=== PATIENT | female | born 1960 | race Caucasian/White ===

== ENCOUNTER → 2019-07-16 | Day surgery (SDC) | payer OTHER ==
[~2019-07-16] MED LIST: BUSP5TAB PO; CELE200C PO; CITA20TA6 PO; CLONAZEPAM1 MG PO; DOCU-109 PO; DULO60CA6 PO; HYDR-2680 PO; HYDR-2765 PO; HYDR25TA PO; IV RINGERS,LACTATED 1000ML 1,000 ML IV SCH; LIDOCAINE 2% PF 5 ML VIAL. ONE; LISI-130 PO; OLAN20TA15 PO; OLME1TAB21 PO; OXYC10TA46 PO; PANT40TA77 PO; PROPOFOL 20 ML IV ONE; PROPOFOL 40 ML IV ONE; WARF-78 PO
[2019-07-16 14:45] VITALS: BP 113/68
--- NOTE | 2019-07-17 14:06 | PATHOLOGY ---
[facility] Accession Number: [id number] . 01 Material submitted: . esophagus - DISTAL ESOPHAGUS BIOPSY. Modifiers: distal . 01 Clinical history: . Nausea with vomiting, abdominal pain, [facility] . 02 Diagnosis: Esophageal biopsies, distal esophagus: - Segments of hyperplastic squamous esophageal mucosa consistent with reflux esophagitis. (JPM:moses; 07/17/2019) QMS 07/17/2019 0846 Local . 02 Comment: Sections of the distal esophageal biopsy reveal segments of tangentially oriented, hyperplastic squamous esophageal mucosa showing focal chronic inflammation. There is a rare intraepithelial eosinophil. The findings are consistent with reflux esophagitis. There is no evidence of Stark's change, dysplasia, or malignancy. (JPM:moses; 07/17/2019) . 02 Electronically signed: . Derek Connell MD, Pathologist NPI- [id number] . 01 Gross description: . Received in formalin labeled "Tangela Benjamin, distal esophagus BX," are 2 segments of moyer soft tissue measuring 0.9 x 0.2 x 0.2 cm in aggregate dimensions and ranging from 0.4 to 0.5 cm in maximum dimension. The specimen is submitted entirely in cassette A1. (TSD; 07/16/2019) TOB/TOB 07/16/2019 1754 Local . 02 Pathologist provided ICD-10: K21.0 . 02 CPT . 493808 Specimen Comment: A courtesy copy of this report has been sent to Specimen Comment: [phone], . Specimen Comment: Report sent to / DR SLAUGHTER Performed at: [address], [place], [place] [id number] MD Angel Pink MD Phone: [phone] Performed at: [address] [id number] MD Derek Connell MD Phone: [phone]
== END ==
LOC: SURG 12:04
PROVIDERS: ATTEND Internal Medicine Gastroenterology
DX: R19.4 Change in bowel habit (principal); K57.30 Diverticulosis of large intestine without perforation or abscess without bleeding; K21.0 Gastro-esophageal reflux disease with esophagitis; K44.9 Diaphragmatic hernia without obstruction or gangrene; K64.0 First degree hemorrhoids; F41.9 Anxiety disorder, unspecified; J45.909 Unspecified asthma, uncomplicated; F32.9 Major depressive disorder, single episode, unspecified; J43.9 Emphysema, unspecified; G47.30 Sleep apnea, unspecified; F15.90 Other stimulant use, unspecified, uncomplicated; I11.9 Hypertensive heart disease without heart failure; F19.90 Other psychoactive substance use, unspecified, uncomplicated; E78.00 Pure hypercholesterolemia, unspecified; Z88.6 Allergy status to analgesic agent; Z72.89 Other problems related to lifestyle; Z96.60 Presence of unspecified orthopedic joint implant; Z87.891 Personal history of nicotine dependence; Z87.39 Personal history of other diseases of the musculoskeletal system and connective tissue; Z96.642 Presence of left artificial hip joint
CPT/HCPCS: 43239; 45378; 88305; J2001; J2704